=== PATIENT | female | born 1960 | race African-American/Black ===

== ENCOUNTER → 2016-08-27 | Outpatient (CLI) | payer OTHER ==
[~2016-08-27] MED LIST: ACETAMINOPHEN325 M1 PO; ALEVE220 MG PO; ANTACID168 MG PO; B12INJ IM; BENLYSTA120 MG IV; BUPROPION XL300 MG PO; COZAAR 25MG TAB25 MG PO; COZAAR 50 MG TA50 M2 PO; CYMBALTA; DEXILANT60 MG PO; ESTRACE2 MG PO; LORAZEPAM 0.50.5 MG PO; MAXZIDE-25 MG1 EACH PO; MYCOPHENOLATE500 MG PO; PREDNISONE; PRILOSEC 20 MG20 MG PO; PROVENTIL; PROZAC20 MG PO; TRAZODONE HCL50 MG PO; TRIAMCINOLONE A80 G2 TOP; VALIUM5 MG PO; VITAMIN D1000 UNI2 PO; VITAMIN D3400 UNIT PO; VITAMINC500 PO; VOLTAREN GEL 1100 G2 TOP; ZANAFLEX4 MG PO; ZANTAC 150MG T150 MG PO; ZOFRAN ODT4 MG PO
== END ==
LOC: MRI 11:04
DX: M17.11 Unilateral primary osteoarthritis, right knee (principal)